=== PATIENT | male | born 1980 | race Caucasian/White ===

== ENCOUNTER 2020-02-11 17:39 | Emergency (ER) | payer MEDICAID, OTHER, SELFPAY ==
[~2020-02-11] VITALS: Ht 188 cm; Wt 92.1 kg
--- NOTE | 2020-02-11 18:07 | NUR ---
PT CANNOT PROVIDE UA AT THIS TIME, WOULD LIKE TO TRY AGAIN BEFORE STRAIGHT CATH. PT GIVEN GOWN AND BLANKETS TO CHANGE FOR EXAM
[2020-02-11 18:49] LABS: BASOPHILS # (AUTO) 0.02 x10^3/uL (0-0.1); BASOPHILS % (AUTO) 0 % (0-1); EOSINOPHILS # (AUTO) 0.24 x10^3/uL (0-0.4); EOSINOPHILS % (AUTO) 3 % (1-7); LYMPHOCYTES # (AUTO) 1.68 x10^3/uL (1-3.4); LYMPHOCYTES % (AUTO) 20 % (22-44); MD NO; MEAN CORPUSCULAR HEMOGLOBIN 31.1 pg (27.5-34.5); MEAN CORPUSCULAR HGB CONC 34.1 g/dL (33.2-36.2); MEAN CORPUSCULAR VOLUME 91.3 fL (81-97); MEAN PLATELET VOLUME 12.1 fL (7.4-10.4); MONOCYTES # (AUTO) 0.66 x10^3/uL (0.2-0.8); MONOCYTES % (AUTO) 8 % (2-9); NEUTROPHILS # (AUTO) 5.83 x10^3/uL (1.8-6.8); NEUTROPHILS % (AUTO) 69 % (42-75); PLATELET COUNT 142 x10^3/uL (130-400); RED BLOOD COUNT 4.41 x10^6/uL (4.38-5.82); RED CELL DISTRIBUTION WIDTH 13.9 % (9.4-14.8)
[2020-02-11 18:51] VITALS: BP 125/82
[2020-02-11 18:54] LABS: ALBUMIN 3.6 g/dL (3.4-5.0); ANION GAP 5 mmol/L (5-15); CALCIUM 9.1 mg/dL (8.5-10.1); CHLORIDE 107 mmol/L (98-107); CREATININE 1.39 mg/dL (0.7-1.3)
[2020-02-11 19:22] LABS: MICROSCOPIC NOT IND
[2020-02-11 19:26] LABS: CULTURE INDICATED? NO
[2020-02-11 19:28] LABS: AMPHETAMINE SCREEN, URINE Positive (Negative); BARBITURATE SCREEN, URINE Negative (Negative); BENZODIAZEPINE SCREEN, URINE Negative (Negative); CANNABINOID SCREEN, URINE Positive (Negative); COCAINE SCREEN, URINE Negative (Negative); METHADONE SCREEN, URINE Negative (Negative); OPIATE SCREEN, URINE Negative (Negative)
[2020-02-11] MEDS ORDERED: CEFTRIAXONE 1,000 MG IM ONE (19:30)
[2020-02-11] MEDS ORDERED: MUPIROCIN OINT 2%, 22GM TP ONE (19:30)
[2020-02-11] MEDS ORDERED: CEFTRIAXONE 1,000 MG ONE (19:37)
[2020-02-11] MEDS ORDERED: LIDOCAINE-MPF 1%, 2ML ONE (19:37)
--- NOTE | 2020-02-11 19:59 | NUR ---
Patient/Caregiver given discharge instructions and they have confirmed that they understand the instructions. Patient ambulatory with steady gait.
[2020-02-11] MEDS ORDERED: MUPIROCIN OINT 2%, 1 GM APPL. TP SCH (21:00)
== END 2020-02-11 20:01 | disposition home or self-care (01) ==
LOC: ED 19:07
DX: S31.21XA Laceration without foreign body of penis, initial encounter (principal); F15.129 Other stimulant abuse with intoxication, unspecified; F17.200 Nicotine dependence, unspecified, uncomplicated; W45.8XXA Other foreign body or object entering through skin, initial encounter; Y93.89 Activity, other specified; Y92.89 Other specified places as the place of occurrence of the external cause; Y99.8 Other external cause status
CPT/HCPCS: 36415; 80048; 80307; 81003; 82040; 85025; 87491; 87591; 96372; 99283; J0696